=== PATIENT | male | born 2000 | race Caucasian/White ===

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

== ENCOUNTER 2020-11-07 20:22 | Emergency (ER) | payer OTHER ==
[~2020-11-07] VITALS: Ht 185.4 cm; Wt 86.9 kg
[~2020-11-07 20:22] MED LIST: HYDR-1179 PO; ONDA8TAB12 PO; TAMS0.4C97 PO
[2020-11-07 20:35] VITALS: BP 146/66
[2020-11-07] MEDS ORDERED: MORPHINE SULFATE 10 MG/ML SYRINGE. ONE (20:44)
[2020-11-07] MEDS ORDERED: METOCLOPRAMIDE HCL 10 MG/2 ML VIAL. ONE (20:44)
[2020-11-07] MEDS ORDERED: ONDANSETRON PF 4 MG/2 ML VIAL. ONE (20:44)
[2020-11-07] MEDS ORDERED: METOCLOPRAMIDE HCL 10 MG/2 ML VIAL. IVP ONE (20:45)
[2020-11-07] MEDS ORDERED: KETOROLAC 15 MG/ML VIAL. IVP ONE (20:45)
[2020-11-07] MEDS ORDERED: MORPHINE SULFATE 2 MG/ML DISP.SYRIN. IV ONE (20:45)
[2020-11-07] MEDS ORDERED: ONDANSETRON PF 4 MG/2 ML VIAL. IVP ONE (20:45)
[2020-11-07] MEDS ORDERED: MORPHINE SULFATE 4 MG/ML DISP.SYRIN. IV ONE (20:45)
--- NOTE | 2020-11-07 20:53 | RAD ---
Abdominal and Pelvis CT, Without Contrast: History: Reason: flank pain / Spl. Instructions: / History: Comparison: None. Procedure: Axial images are obtained of the abdomen and pelvis, without IV or oral contrast. Oral Contrast: No Findings: Evaluation of solid organs is limited without contrast. Liver: Normal. Spleen: Normal. Pancreas: Normal. Adrenal Glands: Normal. Kidneys: There is moderate left hydronephrosis and left hydroureter secondary to 5 mm stone in the di stal left ureter. There is no free air or free fluid. There is no lymphadenopathy. The urinary bladder collapsed and not well evaluated. There is no pericolonic inflammation identified. The spinal lysis on the left at L5-S1. The gallbladder appears normal. The appendix is normal. Impression: 1. Moderate left hydronephrosis and left hydroureter secondary to a 5 mm stone in the distal left ure ter. 2. Left-sided spondylolysis of L5-S1. End impression PQRS Compliance Statement: One or more of the following individualized dose reduction techniques were utilized for this examinat ion: 1. Automated exposure control 2. Adjustment of the mA and/or kV according to patient size 3. Use of iterative reconstruction technique Electronically signed by: Buck Damon III, MD (11/07/2020 8:51 PM) [facility]
[2020-11-07 21:22] LABS: BASO # 0.1 x10^3/uL (0.0-0.2); BASO % 1 % (0-3); EOS # 0.1 x10^3/uL (0.0-0.7); EOS % 1 % (0-3); HEMATOCRIT 44.9 % (39.0-53.0); HEMOGLOBIN 15.2 g/dL (13.0-17.5); LYMPH # 1.5 x10^3/uL (1.0-4.8); LYMPH % 16 % (24-48); MEAN CORPUSCULAR HEMOGLOBIN 30 pg (25-35); MEAN CORPUSCULAR HGB CONC 34 g/dL (31-37); MEAN CORPUSCULAR VOLUME 89 fL (79-100); MONO % 11 % (0-9); NEUT # 6.6 x10^3uL (1.8-7.7); NEUT % 71 % (31-73); PLATELET COUNT 195 x10^3/uL (140-400); RED BLOOD COUNT 5.03 x10^6/uL (4.30-5.70); RED CELL DISTRIBUTION WIDTH 12.8 % (11.5-14.5); WHITE BLOOD COUNT 9.3 x10^3/uL (4.0-11.0)
[2020-11-07 21:30] LABS: CALCIUM 9.4 mg/dL (8.5-10.1); CREATININE 1.6 mg/dL (0.7-1.3); GFR 54.3; POTASSIUM 3.8 mmol/L (3.5-5.1)
--- NOTE | 2020-11-07 21:33 | PHYS DOC ---
Past History Past Medical History: Other Past Surgical History: No Surgical History Alcohol Use: None Drug Use: None Adult General Chief Complaint Chief Complaint: FLANK PAIN HPI HPI Patient is 20-year-old male with a past medical history of kidney stones presents with acute left-sided flank pain, which started just before coming in the emergency department, 8 out of 10, sharp in nature with radiation to the groin. States he has had this before. States he has had some nonbloody nonbilious emesis as well. Denies any recent traumas, illnesses, fever, chest pain, shortness of breath. Review of Systems Review of Systems Review of systems otherwise unremarkable except noted in HPI Current Medications Current Medications Current Medications Medications (Trade) Dose Ordered Sig/Diamante Start Time Stop Time Status Last Admin Dose Admin Ketorolac Tromethamine (Toradol 15mg Vial) 15 mg 1X ONCE 11/07/20 20:45 11/07/20 20:48 DC 11/07/20 20:51 15 MG Metoclopramide HCl (Reglan Vial) 10 mg STK-MED ONCE 11/07/20 20:44 11/07/20 20:44 DC Morphine Sulfate (Morphine 10mg Syringe) 10 mg STK-MED ONCE 11/07/20 20:44 11/07/20 20:45 DC Morphine Sulfate (Morphine 2mg Syringe) 2 mg 1X ONCE 11/07/20 20:45 11/07/20 20:48 DC 11/07/20 20:45 2 MG Morphine Sulfate (Morphine 4mg Syringe) 4 mg 1X ONCE 11/07/20 20:45 11/07/20 20:48 DC 11/07/20 20:45 4 MG Ondansetron HCl (Zofran) 8 mg 1X ONCE 11/07/20 20:45 11/07/20 20:48 DC 11/07/20 20:50 8 MG Allergies Allergies Allergies Coded Allergies Type Severity Reaction Last Updated Verified No Known Drug Allergies 11/07/20 No Physical Exam Physical Exam Constitutional: Well developed, well nourished, no acute distress, non-toxic appearance. [] HENT: Normocephalic, atraumatic, bilateral external ears normal, oropharynx moist, no oral exudates, nose normal. [] Eyes: PERRLA, EOMI, conjunctiva normal, no discharge. [] Neck: Normal range of motion, no tenderness, supple, no stridor. [] Cardiovascular:Heart rate regular rhythm, no murmur [] Lungs & Thorax: Bilateral breath sounds clear to auscultation [] Abdomen: Bowel sounds normal, soft, no tenderness, no masses, no pulsatile masses. [] Skin: Warm, dry, no erythema, no rash. [] Back: No tenderness, no CVA tenderness. [] Extremities: No tenderness, no cyanosis, no clubbing, ROM intact, no edema. [] Neurologic: Alert and oriented X 3, normal motor function, normal sensory function, no focal deficits noted. [] Psychologic: Affect normal, judgement normal, mood normal. [] Current Patient Data Vital Signs Vital Signs Date Time Temp Pulse Resp B/P (MAP) Pulse Ox O2 Delivery O2 Flow Rate FiO2 11/07/20 20:45 16 Lab Results Laboratory Tests Test 11/07/20 20:38 White Blood Count 9.3 x10^3/uL (4.0-11.0) Red Blood Count 5.03 x10^6/uL (4.30-5.70) Hemoglobin 15.2 g/dL (13.0-17.5) Hematocrit 44.9 % (39.0-53.0) Mean Corpuscular Volume 89 fL (79-100) Mean Corpuscular Hemoglobin 30 pg (25-35) Mean Corpuscular Hemoglobin Concent 34 g/dL (31-37) Red Cell Distribution Width 12.8 % (11.5-14.5) Platelet Count 195 x10^3/uL (140-400) Neutrophils (%) (Auto) 71 % (31-73) Lymphocytes (%) (Auto) 16 % (24-48) L Monocytes (%) (Auto) 11 % (0-9) H Eosinophils (%) (Auto) 1 % (0-3) Basophils (%) (Auto) 1 % (0-3) Neutrophils # (Auto) 6.6 x10^3uL (1.8-7.7) Lymphocytes # (Auto) 1.5 x10^3/uL (1.0-4.8) Monocytes # (Auto) 1.0 x10^3/uL (0.0-1.1) Eosinophils # (Auto) 0.1 x10^3/uL (0.0-0.7) Basophils # (Auto) 0.1 x10^3/uL (0.0-0.2) EKG EKG [] Radiology/Procedures Radiology/Procedures [] Heart Score C/O Chest Pain: No Risk Factors: Risk Factors: DM, Current or recent (<one month) smoker, HTN, HLP, family history of CAD, obesity. Risk Scores: Risk Factors: DM, Current or recent (<one month) smoker, HTN, HLP, family history of CAD, obesity. Course & Med Decision Making Course & Med Decision Making Patient is a 20-year-old male who presents with acute onset left flank pain as sociated with nausea vomiting Vital signs notable initially for tachycardia and hypertension which resolved in the ED after management. Physical exam noted above. Patient given pain and nausea medicine. Laboratory analysis not concerning. CT with moderate left hydronephrosis secondary to a 5 mm distal stone. Discussed all findings with patient. On reassessment patient stated he was feeling 100% better with all symptoms resolved. Discussed stone with patient and advised it is in his distal ureter and of which should be passing shortly. Patient stated he felt like he going home. Discussed symptom management at home. Advised to follow-up with primary care physician in the morning to set up a follow-up visit. Return precautions to the ED. Patient grateful, verbalized understanding and agreed with plan of discharge. Dragon Disclaimer Dragon Disclaimer This electronic medical record was generated, in whole or in part, using a voice recognition dictation system. Departure Departure: Impression: Primary Impression: Ureterolithiasis Disposition: HOME / SELF CARE / HOMELESS Condition: GOOD Referrals: PCP,KILEY (PCP) JOANIE VILLAGOMEZ Patient Instructions: Diet for Kidney Stones, Kidney Stones Additional Instructions: Thanks for coming into the emergency department tonight and allowing us to take care of you. Please read all the attached information above to go over things we discussed. Over the next several hours be prepared to pass your kidney stone as it is about to fall into your bladder as we discussed. This will still cause some discomfort though so you should still continue some Tylenol, ibuprofen, and Benadryl every 6 hours until you are sure you have passed the stone. Please strain your urine.. You are given some prescription pain medicine. Please use that tomorrow with your ibuprofen and your Benadryl to control pain please stay well-hydrated. Please call your primary care physician in the morning to update on ED visit. Please come back to the ED with new or concerning symptoms as discussed. MONSERRAT CHILDRESS MD Nov 07, 2020 21:33
[2020-11-07 21:42] LABS: BILIRUBIN,URINE NEG (NEG); CLARITY,URINE CLOUDY; COLOR,URINE AMBER; GLUCOSE,URINE NEG (NEG); NITRITE,URINE NEG (NEG); RBC,URINE 20-40 /HPF (0-2); UROBILINOGEN,URINE 0.2 mg/dL (0.2 mg/dL)
[2020-11-07 21:43] LABS: BACTERIA,URINE FEW /HPF (0-FEW); GRANULAR CASTS,URINE FEW /HPF; SQUAMOUS EPITHELIAL CELL,UR FEW /LPF
[2020-11-07] MEDS ORDERED: oxyCODONE/APAP 5/325 1 TAB TABLET PO ONE (22:00)
== END 2020-11-07 21:52 | disposition home or self-care (01) ==
LOC: ER 20:22
DX: N20.1 Calculus of ureter (principal); Z87.442 Personal history of urinary calculi
CPT/HCPCS: 36415; 74176; 80048; 81001; 85025; 87086; 96374; 96375; 99284; J1885; J2270; J2405; J2765

== ENCOUNTER 2021-04-29 20:44 | Emergency (ER) | payer OTHER ==
[~2021-04-29] VITALS: Ht 185.4 cm; Wt 78.1 kg
[2021-04-29 21:10] VITALS: BP 168/100
--- NOTE | 2021-04-29 21:18 | PHYS DOC ---
Past History Past Medical History: Other (SHAISTA TONG APRN) Past Surgical History: No Surgical History (SHAISTA TONG APRN) Alcohol Use: None Drug Use: None (SHAISTA TONG APRN) General Adult EDM: Chief Complaint: FLANK PAIN HPI: HPI: Patient is a 21-year-old male who presents to the emergency department for left- sided flank pain that started today. He reports that the left flank pain does radiate to the left lower abdomen. He rates his pain 4 out of 10. Patient is also reporting nausea and vomiting as well as dysuria. He has a history of kidney stones, last kidney stone was in October. Patient reports that he is typically able to pass them on their own with pain medication and Flomax. Patient reports that his pain feels just like a kidney stone. Patient denies decreased urine output, fevers, hematuria. (SHAISTA TONG APRN) Review of Systems: Review of Systems: Constitutional: see HPI GI: see HPI :see HPI Musculoskeletal: see HPI (SHAISTA TONG APRN) Allergies: Allergies: Allergies Coded Allergies Type Severity Reaction Last Updated Verified No Known Drug Allergies 11/07/20 No (SHAISTA TONG APRN) Physical Exam: PE: Constitutional: Well developed, well nourished, no acute distress, non-toxic appearance. [] HENT: Normocephalic, atraumatic, bilateral external ears normal, oropharynx moist, no oral exudates, nose normal. [] Eyes: PERRL, EOMI, conjunctiva normal, no discharge. [] Neck: Normal range of motion, no stridor Cardiovascular:Heart rate regular rhythm, no murmur [] Lungs & Thorax: Bilateral breath sounds clear to auscultation [] Abdomen: Bowel sounds normal, soft, no tenderness, no masses, no pulsatile masses. [] Skin: Warm, dry, no erythema, no rash. [] Back: No tenderness, no CVA tenderness. [] Extremities: No tenderness, no cyanosis, no clubbing, ROM intact, no edema. [] Neurologic: Alert and oriented X 3, normal motor function, normal sensory function, no focal deficits noted. [] Psychologic: Affect normal, judgement normal, mood normal. [] (SHAISTA TONG APRN) Current Patient Data: Vital Signs: Vital Signs Date Time Temp Pulse Resp B/P (MAP) Pulse Ox O2 Delivery O2 Flow Rate FiO2 04/29/21 21:10 53 18 168/100 (122) 100 Room Air (SHAISTA TONG APRN) EKG: EKG: [] (SHAISTA TONG APRN) Radiology/Procedures: Radiology/Procedures: [] (SHAISTA TONG APRN) Heart Score: C/O Chest Pain: N/A Risk Factors: Risk Factors: DM, Current or recent (<one month) smoker, HTN, HLP, family history of CAD, obesity. Risk Scores: Score 0 - 3: 2.5% MACE over next 6 weeks - Discharge Home Score 4 - 6: 20.3% MACE over next 6 weeks - Admit for Clinical Observation Score 7 - 10: 72.7% MACE over next 6 weeks - Early Invasive Strategies (SHAISTA TONG APRN) Course & Med Decision Making: Course & Med Decision Making Pertinent Labs and Imaging studies reviewed. (See chart for details) Patient presents to the emergency department for left-sided flank pain with nausea, vomiting and dysuria. Patient has a history of kidney stones and reports that this feels like his typical kidney stone pain. Work-up in the ER consisted of blood work including lipase, urinalysis and CT imaging of abdomen and pelvis to rule out kidney stone. Patient will be treated with IV fluids, nausea medication and pain medication. Patient is not actively vomiting in the emergency department. His vital signs are stable. 2149: at this time patients lab work and CT imaging is pending. I discussed case with supervising physician and he will assume patient care due to shift change at this time. (SHAISTA TONG APRN) Course & Med Decision Making Patient care handed off to me at checkout pending imaging results. Patient with a left-sided renal stone, distally just about to drop into the bladder. Pain and nausea managed. Prescription pain medicine sent to pharmacy. Discussed symptom control at home. Started on antibiotics as he has had some burning with urination but did not want to wait around until his urinalysis resulted. Advised to follow-up in the morning with primary care physician. Gave return pr ecautions to the ED. Discussed course of passage of stone. (MONSERRAT CHILDRESS MD) Ramana Disclaimer: Dragon Disclaimer: This electronic medical record was generated, in whole or in part, using a voice recognition dictation system. (SHAISTA TONG APRN) Departure Departure: Impression: Primary Impression: Kidney stone Disposition: HOME / SELF CARE / HOMELESS Condition: GOOD Referrals: PCP,KILEY (PCP) RACHELLE DONG MD Patient Instructions: Diet for Kidney Stones, Kidney Stones, [id number] Additional Instructions: You were seen in the emergency department for a kidney stone though likely passed on 7. You are being discharged home with pain medication he can use as needed. This may cause sedation so caution taking. Also being discharged home with nausea medication you can take as needed. Increase your fluids. Follow-up with your primary care provider tomorrow regarding your ER visit. Return to the emergency department if you develop worsening of your pain, abdominal pain, intractable nausea or vomiting, high fevers refractory to treatment. Scripts Ondansetron (ONDANSETRON ODT) 4 Mg Tab.rapdis 1 TAB PO PRN Q6-8HRS for nausea for 7 Days, #21 TAB 0 Refills Prov: SHAISTA TONG APRN 04/29/21 Hydrocodone Bit/Acetaminophen (HYDROCODONE-APAP 5-325 ) 1 Each Tablet 1 TAB PO PRN Q6HRS PRN for PAIN for 2 Days, #8 TAB 0 Refills Prov: SHAISTA TONG APRN 04/29/21 SHAISTA TONG APRN Apr 29, 2021 21:18 MONSERRAT CHILDRESS MD Apr 29, 2021 23:09
[2021-04-29 21:58] LABS: BASO # 0.1 x10^3/uL (0.0-0.2); BASO % 1 % (0-3); EOS # 0.1 x10^3/uL (0.0-0.7); EOS % 1 % (0-3); HEMATOCRIT 44.3 % (39.0-53.0); HEMOGLOBIN 15.1 g/dL (13.0-17.5); LYMPH # 1.3 x10^3/uL (1.0-4.8); LYMPH % 15 % (24-48); MEAN CORPUSCULAR HEMOGLOBIN 31 pg (25-35); MEAN CORPUSCULAR HGB CONC 34 g/dL (31-37); MEAN CORPUSCULAR VOLUME 89 fL (79-100); MONO # 0.8 x10^3/uL (0.0-1.1); MONO % 9 % (0-9); NEUT # 6.6 x10^3uL (1.8-7.7); NEUT % 74 % (31-73); PLATELET COUNT 159 x10^3/uL (140-400); RED BLOOD COUNT 4.96 x10^6/uL (4.30-5.70); RED CELL DISTRIBUTION WIDTH 13.1 % (11.5-14.5); WHITE BLOOD COUNT 8.9 x10^3/uL (4.0-11.0)
[2021-04-29] MEDS ORDERED: HYDR-2155 PO (21:59)
[2021-04-29] MEDS ORDERED: ONDA4TAB12 PO (21:59)
[2021-04-29] MEDS ORDERED: IV RINGERS SOLUTION,LACTATED 1,000 ML IV SCH (22:00)
[2021-04-29] MEDS ORDERED: ONDANSETRON PF 4 MG/2 ML VIAL. IVP ONE (22:00)
[2021-04-29] MEDS ORDERED: KETOROLAC 30 MG/ML VIAL. IVP ONE (22:00)
[2021-04-29 22:09] LABS: CALCIUM 9.2 mg/dL (8.5-10.1); CREATININE 1.7 mg/dL (0.7-1.3); GFR 50.2; POTASSIUM 3.7 mmol/L (3.5-5.1)
--- NOTE | 2021-04-29 22:09 | RAD ---
EXAMINATION: CT ABDOMEN+PELVIS WO CLINICAL HISTORY: Left flank pain, hx of kidney stones and L5-S1 fracture. TECHNIQUE: Imaging of the abdomen and pelvis was performed without intravenous contrast using standar d technique, scanning from just above the dome of the diaphragm to the symphysis pubis. Unenhanced i maging is limited for the evaluation of some intra-abdominal and pelvic pathology. CT Dose Reduction Employed: One or more of the following individualized dose reduction techniques wer e utilized for this examination: 1. Automated exposure control 2. Adjustment of the mA and/or kV ac cording to patient size 3. Use of iterative reconstruction technique. COMPARISON: 11/07/2020 FINDINGS: Visualized heart and lungs unremarkable. Liver, gallbladder, pancreas, spleen, and adrenal glands unremarkable. 3 mm calculus in the distal left ureter just proximal to the ureterovesical junction with moderate le ft hydroureteronephrosis. Right kidney unremarkable. Minimally filled urinary bladder suboptimally evaluated. No dilated bowel. Appendix within normal limits. No abdominal aortic or iliac artery aneurysm. No evidence of acute osseous abnormality. Remote L5 spondylolysis on the left. IMPRESSION: 3 mm calculus distal left ureter with moderate left hydroureteronephrosis. Electronically signed by: Basil Alexander DO (04/29/2021 10:07 PM) [facility]
[2021-04-29 22:15] LABS: ALBUMIN 4.4 g/dL (3.4-5.0); ALBUMIN/GLOBULIN RATIO 1.9 (1.0-1.7); TOTAL BILIRUBIN 1.6 mg/dL (0.2-1.0); TOTAL PROTEIN 6.7 g/dL (6.4-8.2)
[2021-04-29] MEDS ORDERED: CEPH500C PO (23:11)
[2021-04-29 23:29] LABS: CLARITY,URINE CLEAR; COLOR,URINE YELLOW; GLUCOSE,URINE NEG (NEG); NITRITE,URINE NEG (NEG); UROBILINOGEN,URINE 0.2 mg/dL (0.2 mg/dL)
[2021-04-29 23:30] LABS: BACTERIA,URINE FEW /HPF (0-FEW); SQUAMOUS EPITHELIAL CELL,UR OCC /LPF
[2021-04-29] MEDS ORDERED: MORPHINE SULFATE 4 MG/ML DISP.SYRIN. IV ONE (23:30)
[2021-04-29] MEDS ORDERED: CEPHALEXIN 250 MG CAPSULE PO ONE (23:30)
== END 2021-04-29 23:30 | disposition home or self-care (01) ==
LOC: ER 20:44
DX: N13.2 Hydronephrosis with renal and ureteral calculous obstruction (principal)
CPT/HCPCS: 36415; 74176; 80053; 81001; 83690; 85025; 96361; 96374; 96375; 99284; J1885; J2270; J2405; J3010; J7120